=== PATIENT | female | born 1990 | race Caucasian/White ===

== ENCOUNTER 2019-08-13 22:25 | Emergency (ER) | payer OTHER ==
[2019-08-13 22:43] VITALS: BP 144/84; PULSE 114; TEMP 98.8; BMI 29.9
--- NOTE | 2019-08-13 23:06 | PDOC ---
Documentation entered by Arnoldo Blanton SCRIBE, acting as scribe for Angel Goff MD. Angel Goff MD: This documentation has been prepared by the Harvinder thao Daniel, SCRIBE, under my direction and personally reviewed by me in its entirety. I confirm that the documentation accurately reflects all work , treatment, procedures, and medical decision making performed by me. History of Present Illness - General Chief Complaint: Pain Stated Complaint: ABD CRAMPS History Source: Patient Exam Limitations: No Limitations - History of Present Illness Initial Comments: 08/13/19 23:04 This is a 29-year-old female who comes in complaining of intermittent crampy pelvic pain. Patient denies any nausea vomiting or diarrhea. Patient said pain has been intermittent x1 week. Patient said there is no pain at this time. Patient did not follow-up with her OB regarding the patient. Patient's last menstrual cycle was approximately 10 days ago. Patient is on control pills for painful menses. Allergies: as per nursing notes Past Medical History: none Social history: Lives with family. No smoking. No alcohol. No illicit drugs. Surgical history: None General: No fevers or chills, no weakness, no weight loss HEENT: No change in vision. No sore throat,. No ear pain CardioVascular: no chest discomfort. No shortness of breath Respiratory:No cough, or wheezing. Gastrointestinal: no nausea, vomiting, diarrhea or constipation, No rectal bleeding, + pelvic pain Genitourinary: No dysuria, hematuria, or frequency Musculoskeletal: No joint or muscle pain or swelling Neurologic: No headache, vertigo, dizziness or loss of consciousness Psychiatric: nor depression Skin: No rashes or easy bruising Endocrine: no increased thirst or abnormal weight change Allergic: no skin or latex allergy All other systems reviewed and normal Exam: General: Well-nourished well-developed individual, no acute distress HEENT: Throat: Normal, tonsils normal, no erythema or exudate Neck: Supple, no meningeal signs, no lymphadenopathy Eyes::Pupils equal reactive and round, extraocular motion intact Chest: Nontender to palpation Cardiac: S1-S2 normal, regular rate and rhythm, no murmurs rubs or gallops Respiratory: Lungs clear to auscultation bilateral Abdomen: Soft, nondistended, normal bowel sounds, there is no tenderness on palpation diffusely Extremities: Warm, dry, no cyanosis, clubbing, or edema Skin: No rashes Neuro: Alert and oriented x3, CN II - XII intact, nonfocal exam with normal strength, normal sensation, normal reflexes, normal gait, Psych: Normal mood and affect Past History - Past Medical History Allergies/Adverse Reactions: Allergies Allergy/AdvReac Type Severity Reaction Status Date / Time No Known Allergies Allergy Unverified 08/13/19 22:26 Home Medications: Ambulatory Orders Ibuprofen [Advil -] 400 mg PO ONCE 08/13/19 Levonorgestrel-Ethin Estradiol [Lutera-28 Tablet] 1 each PO DAILY 08/13/19 *Physical Exam - Vital Signs Last Vital Signs Temp Pulse Resp BP Pulse Ox 98.8 F 114 H 18 144/84 100 08/13/19 22:26 08/13/19 22:26 08/13/19 22:26 08/13/19 22:26 08/13/19 22:26 Discharge - Discharge Information Problems reviewed: Yes Clinical Impression/Diagnosis: Pelvic cramping Condition: Stable Disposition: HOME - Admission No - Follow up/Referral Referrals: Joe Brown MD [Primary Care Provider] - - Patient Discharge Instructions Additional Instructions: Follow-up with your OB next week if you still have any symptoms. Take ibuprofen 3 tablets 3 times a day with food as needed for pain. Return to the emergency department immediately with ANY new, persistent or worsening symptoms. Continue any medications as previously prescribed by your physician. You should follow up with your primary doctor as soon as possible regarding today's emergency department visit. . Please make sure your doctor reviews the results of your emergency evaluation. Thank you for coming to the Emergency Department today for your care. It was a pleasure to see you today. Please note that your evaluation is INCOMPLETE until you follow-up with your doctor. - Post Discharge Activity
== END 2019-08-13 23:18 | disposition home or self-care (01) ==
LOC: FER 22:25
DX: R10.2 Pelvic and perineal pain (principal)
CPT/HCPCS: 99281-25

== ENCOUNTER 2019-09-24 07:31 | Day surgery (SDC) | payer OTHER ==
[2019-09-22 12:19] VITALS: BMI 28.6
[2019-09-24] MEDS ORDERED: LIDOCAINE HCL/PF 2% SDV 5ML VIAL ONE (08:28)
[2019-09-24] MEDS ORDERED: PROPOFOL 20 ML ONE ×2 (08:28)
[2019-09-24 09:51] VITALS: TEMP 98
[2019-09-24 09:53] VITALS: BP 106/66; PULSE 69
--- NOTE | 2019-09-28 16:58 | PATH ---
Surgical Pathology Report Patient Name: BRANDIE SANTACRUZ [facility]. Rec. #: [id number] /Age/Gender: 1990 (Age: 29) / F Account: [id number] Location: [facility] Taken: 09/24/2019 Received: 09/24/2019 Reported: 09/28/2019 Physicians: Jimmy Gutierrez M.D. Specimen(s) Received A: SECOND PORTION DUODENUM B: ANTRUM C: ESOPHAGUS Clinical History GERD Postoperative diagnosis: Gastritis Final Diagnosis A. SECOND PORTION OF DUODENUM, BIOPSY: DUODENAL MUCOSA WITH NO SIGNIFICANT PATHOLOGIC CHANGE. NO HISTOLOGIC EVIDENCE OF INTRAEPITHELIAL LYMPHOCYTOSIS. B. GASTRIC ANTRUM, BIOPSY: GASTRIC MUCOSA WITH MILD CHRONIC GASTRITIS AND REACTIVE GASTROPATHY. IMMUNOSTAIN FOR H. PYLORI IS NEGATIVE. NEGATIVE FOR INTESTINAL METAPLASIA. C. ESOPHAGUS, BIOPSY: ESOPHAGEAL MUCOSA WITH NO SIGNIFICANT PATHOLOGIC CHANGE. NO HISTOLOGIC EVIDENCE OF EOSINOPHILIC ESOPHAGITIS. Electronically Signed Avel Quan M.D. Gross Description A. Received in formalin, labeled "biopsy second portion of duodenum" are 2 adams, irregular portions of soft tissue averaging 0.4 cm. in greatest dimension. The specimens are submitted in toto in one cassette. B. Received in formalin, labeled "biopsy gastric antrum" are 2 adams, irregular portions of soft tissue measuring 0.3 and 0.4 cm. in greatest dimension. The specimens are submitted in toto in one cassette. C. Received in formalin, labeled "biopsy esophagus" is a adams, irregular portion of soft tissue measuring 0.2 cm. in greatest dimension. The specimen is submitted in toto in one cassette. 09/25/2019 [facility]09/25/2019
== END 2019-09-24 09:30 | disposition home or self-care (01) ==
LOC: FASU-ENDO 07:31
PROVIDERS: ATTEND Internal Medicine Gastroenterology
PROC: 0DB68ZX Excision of Stomach, Via Natural or Artificial Opening Endoscopic, Diagnostic (ICD-10-PCS; 2019-09-24)
PROC: 0DB58ZX Excision of Esophagus, Via Natural or Artificial Opening Endoscopic, Diagnostic (ICD-10-PCS; 2019-09-24)
PROC: 0DB98ZX Excision of Duodenum, Via Natural or Artificial Opening Endoscopic, Diagnostic (ICD-10-PCS; principal; 2019-09-24 08:36)
DX: K29.50 Unspecified chronic gastritis without bleeding (principal); K31.9 Disease of stomach and duodenum, unspecified
CPT/HCPCS: 84703; 88305-TC; 88342-TC